=== PATIENT | female | born 1955 | race Caucasian/White ===

== ENCOUNTER → 2017-05-19 | Outpatient (CLI) | payer MEDICARE ==
--- NOTE | 2017-05-19 19:47 | MR ---
EXAMINATION TYPE: MR brain wo con DATE OF EXAM: 05/19/2017 COMPARISON: NONE HISTORY: Headaches, Dementia TECHNIQUE: Multiplanar, multisequence images of the brain and brainstem is performed without intravenous contras t. FINDINGS: Diffusion weighted images demonstrate no evidence of a recent infarct or other diffusion ab normality. There is no extra-axial fluid collection. Multiple scattered T2/IR hyperintense foci are seen throughout the periventricular and subcortical white matter. The largest on the right is within the parietal periventricular white matter on IR fat sat axial image 20 measuring 7 mm and the largest on the left is within the frontal lobe on image 21 measuring 4 mm. The ventricular system and cister nal spaces are symmetrically prominent, compatible with age-related volume loss. No transependymal ed kelly seen. Major intracranial flow voids are maintained. The brain volume is age appropriate. Midline structures demonstrate normal morphology. The craniocervical junction appears within normal limits. The globes are intact. Minimal mucosal thickening is seen of the ethmoid sinuses. Remaining p aranasal sinuses are well aerated. No cerebellar pontine angle mass IMPRESSION: 1. Moderate burden nonspecific T2/IR hyperintense white matter change. These are most commonly on the basis of chronic microangiopathy but also can be commonly seen in vasculitides or demyelinating dise ase. 2. Mild ethmoidal mucosal thickening/paranasal sinus disease. 3. No acute infarct, midline shift or mass effect.
== END | disposition home or self-care (01) ==
LOC: RADMRIMAIN 18:34
PROVIDERS: ATTEND Family Medicine
DX: I73.9 Peripheral vascular disease, unspecified (principal); R90.82 White matter disease, unspecified
CPT/HCPCS: 70551

== ENCOUNTER → 2018-04-15 | Outpatient (CLI) | payer MEDICARE ==
--- NOTE | 2018-04-15 23:26 | XR ---
EXAMINATION TYPE: XR knee complete LT DATE OF EXAM: 04/15/2018 COMPARISON: NONE HISTORY: 62 year-old female left knee pain TECHNIQUE: 3 views FINDINGS: Small to moderate knee joint effusion. Extensor mechanism is intact. No acute fracture, subluxation o r dislocation. Mild degenerative spurring in the patellofemoral and medial compartments. IMPRESSION: 1. Mild degenerative spurring medial and patellofemoral compartments. 2. Small to moderate knee joint effusion. No acute osseous abnormality seen. If concern for internal derangement, MRI can be performed.
== END | disposition home or self-care (01) ==
LOC: RADXRMAIN 15:37
PROVIDERS: ATTEND Family Medicine
DX: M17.12 Unilateral primary osteoarthritis, left knee (principal)

== ENCOUNTER → 2018-09-23 | Outpatient (CLI) | payer MEDICARE ==
--- NOTE | 2018-09-24 11:40 | MM ---
Reason for exam: screening (asymptomatic). Last mammogram was performed 9 months ago. History: Patient is postmenopausal. Physical Findings: A clinical breast exam by your physician is recommended on an annual basis and results should be correlated with mammographic findings. MG 3D Screening Mammo W/Cad Bilateral CC and MLO view(s) were taken. Prior study comparison: December 09, 2017, mammogram. July 06, 2013, mammogram. The breast tissue is heterogeneously dense. This may lower the sensitivity of mammography. Central left asymmetric density on CC appears to have been present previously but it appears more defined on 3D. Precautionary 6 month follow up recommended. Otherwise, no significant change. ASSESSMENT: Probably benign, BI-RAD 3 RECOMMENDATION: Follow-up diagnostic mammogram of the left breast in 6 months.
== END | disposition home or self-care (01) ==
LOC: RADMAMWWP 13:14
PROVIDERS: ATTEND Family Medicine
DX: Z12.31 Encounter for screening mammogram for malignant neoplasm of breast (principal)
CPT/HCPCS: 77063; 77067

== ENCOUNTER → 2018-10-14 | Outpatient (CLI) | payer MEDICARE ==
--- NOTE | 2018-10-14 15:52 | MR ---
EXAMINATION TYPE: MR knee LT wo con DATE OF EXAM: 10/14/2018 COMPARISON: Plain film 04/15/2018 HISTORY: Pain in left knee TECHNIQUE: Multiplanar, multisequence imaging of the left knee is performed without IV contrast. FINDINGS: MEDIAL MENISCUS: Linear increased signal within the medial meniscus does not extend to the articular surface. Peripherally the meniscus shows abnormal increased signal where there is pseudoextrusion, di fficult to exclude a degenerative tear peripherally at its medial extent. LATERAL MENISCUS: Linear increased signal present within the body does not extend with certainty to t he inferior surface CRUCIATE LIGAMENTS: The anterior and posterior cruciate ligaments are intact and unremarkable. COLLATERAL LIGAMENTS: The medial collateral ligament and lateral collateral ligament complex are inta ct and unremarkable. EXTENSOR MECHANISM: Visualized quadriceps and patellar tendons are intact. EFFUSION: There is a joint effusion in suprapatellar location POPLITEAL CYST: No popliteal/cain cyst. 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 IMPRESSION: Osteoarthritis. Joint effusion. Possible degenerative tear peripherally of the medial meniscus as karon cribed. Joint effusion. Additional findings above.
== END ==
LOC: RADMRIMAIN 15:01
PROVIDERS: ATTEND Family Medicine
DX: M17.12 Unilateral primary osteoarthritis, left knee (principal)

== ENCOUNTER → 2019-04-28 | Outpatient (CLI) | payer MEDICARE ==
--- NOTE | 2019-04-29 10:41 | MM ---
Reason for exam: follow-up at short interval from prior study. Last mammogram was performed 7 months ago. History: Patient is postmenopausal. Family history of breast cancer in maternal cousin. Physical Findings: Nurse Summary: 0.5cm nodule in the left breast at 7 o'clock (nurse katie). MG 3D Diag Mammo W/Cad LT CC and MLO view(s) were taken of the left breast. Prior study comparison: September 23, 2018, bilateral MG 3d screening mammo w/cad. December 09, 2017, mammogram. The breast tissue is heterogeneously dense. This may lower the sensitivity of mammography. There are benign appearing round calcifications in the left breast. There is no discrete abnormality. No new lesion seen. These results were verbally communicated with the patient and result sheet given to the patient on 04/28/19. ASSESSMENT: Incomplete: need additional imaging evaluation, BI-RAD 0 RECOMMENDATION: Ultrasound of the left breast. palpable by nurse
--- NOTE | 2019-04-29 10:41 | USB ---
Reason for exam: additional evaluation requested from abnormal screening. History: Patient is postmenopausal. Family history of breast cancer in maternal cousin. US Breast Limited LT Left limited breast ultrasound including focal area of concern, retroareolar and axilla demonstrates no cystic or solid lesion seen. These results were verbally communicated with the patient and result sheet given to the patient on 04/28/19. ASSESSMENT: Negative, BI-RAD 1 RECOMMENDATION: Return to routine screening mammogram schedule for both breasts.
== END | disposition home or self-care (01) ==
LOC: RADMAMWWP 14:32
PROVIDERS: ATTEND Family Medicine
DX: R92.8 Other abnormal and inconclusive findings on diagnostic imaging of breast (principal); R92.2 Inconclusive mammogram
CPT/HCPCS: 77065; 76642; G0279; 77061

== ENCOUNTER 2021-01-23 12:44 | Emergency (ER) | payer MEDICARE ==
--- NOTE | 2021-01-23 14:16 | ED ---
URI HPI - General Chief Complaint: Upper Respiratory Infection Stated Complaint: covid+ wants infusion Time Seen by Provider: 01/23/21 14:03 Source: patient, RN notes reviewed Mode of arrival: ambulatory Limitations: no limitations - History of Present Illness Initial Comments: This a 65 year old female presents emergency Department with chief complaint of COVID-19. Patient states that she tested positive one week ago. Patient is here for monoclonal antibodies. Patient states that her is admitted upstairs in which he was intubated today and she was concerned. Patient states that she's had some mild shortness breath, cough congestion bodyaches no recent fevers. - Related Data Allergies Allergy/AdvReac Type Severity Reaction Status Date / Time codeine Allergy Nausea & Verified 01/23/21 13:49 Vomiting Review of Systems ROS Statement: Those systems with pertinent positive or pertinent negative responses have been documented in the HPI. ROS Other: All systems not noted in ROS Statement are negative. Past Medical History Additional Past Medical History / Comment(s): Coivd 01/30 History of Any Multi-Drug Resistant Organisms: None Reported Past Surgical History: Section, Hysterectomy Additional Past Surgical History / Comment(s): carpal suregery,amalia cataracts, kidney stents Past Psychological History: Depression Smoking Status: Never smoker Past Alcohol Use History: None Reported Past Drug Use History: None Reported General Exam Limitations: no limitations General appearance: alert, in no apparent distress Head exam: Present: atraumatic, normocephalic, normal inspection Respiratory exam: Present: normal lung sounds bilaterally. Absent: respiratory distress, wheezes, rales, rhonchi, stridor Cardiovascular Exam: Present: regular rate, normal rhythm, normal heart sounds. Absent: systolic murmur, diastolic murmur, rubs, gallop, clicks Course Vital Signs 01/23/21 01/23/21 13:43 13:54 Temperature 98.3 F Pulse Rate 82 Respiratory 20 20 Rate Blood Pressure 132/83 O2 Sat by Pulse 96 Oximetry Medical Decision Making - Medical Decision Making Patient's vitals were reviewed and are within normal limits patient is no sinus distress. Patient received monoclonal antibodies will be discharged in stable condition. Disposition Clinical Impression: COVID-19 Disposition: HOME SELF-CARE Condition: Stable Instructions (If sedation given, give patient instructions): Coronavirus Disease 2019 (COVID-19) Additional Instructions: Please return to the Emergency Department if symptoms worsen or any other concerns. Is patient prescribed a controlled substance at d/c from ED?: No Referrals: Hina Castellon MD [Primary Care Provider] - 1-2 days Time of Disposition: 14:16
[2021-01-23] MEDS ORDERED: SODIUM CHLORIDE 0.9% 50 ML IVPB ONE (15:30)
[2021-01-23] MEDS ORDERED: CASIRIVIMAB/IMDEVIMAB (EUA) 1,200 MG in SODIUM CHLORIDE 0.9% 100 ML IVPB ONE (15:30)
[2021-01-23 16:47] VITALS: BP 143/83; PULSE 63; RESP 18; TEMP 99.2
== END 2021-01-23 16:47 | disposition home or self-care (01) ==
LOC: EC 12:44
DX: U07.1 COVID-19 (principal); F32.9 Major depressive disorder, single episode, unspecified; Z88.5 Allergy status to narcotic agent; Z90.710 Acquired absence of both cervix and uterus
CPT/HCPCS: 99284; 96365; Q0243

== ENCOUNTER → 2023-07-30 | Outpatient (CLI) | payer MEDICARE ==
--- NOTE | 2023-07-30 12:49 | CT ---
EXAMINATION TYPE: CT chest wo con CT DLP: 1161 mGycm, Automated exposure control for dose reduction was used. DATE OF EXAM: 07/30/2023 12:38 PM COMPARISON: Chest radiograph 04/30/2023 CLINICAL INDICATION:Female, 67 years old with history of [id number] OTHER FORMS OF DYSPNEA; PHH, SOB TECHNIQUE: Multiple axial images were obtained through the chest, prone imaging was also obtained. Sa gittal and coronal reformats were created for review. Contrast used: (None if empty) Oral contrast used: (None if empty) FINDINGS: LUNGS/ PLEURA: 2 mm left apex pulmonary micronodule. No evidence of pleural effusion or pneumothorax. Prone imaging is unremarkable. No evidence of chronic fibrosis. AIRWAY: Patent and unremarkable. HEART: Size within normal limits. MEDIASTINUM: No gross evidence of adenopathy. VASCULATURE: No aortic aneurysm. MUSCULOSKELETAL: No acute osseous abnormalities SOFT TISSUES/LYMPH NODES: Unremarkable. LOWER NECK: No significant findings. UPPER ABDOMEN: No significant findings. IMPRESSION: No evidence of acute process or pulmonary fibrosis/interstitial disease.
== END | disposition home or self-care (01) ==
LOC: RADCTMAIN 12:00
PROVIDERS: ATTEND Internal Medicine Critical Care Medicine
DX: R06.09 Other forms of dyspnea (principal); R06.02 Shortness of breath
CPT/HCPCS: 71250

== ENCOUNTER → 2023-08-21 | Outpatient (CLI) | payer MEDICARE, OTHER ==
--- NOTE | 2023-08-26 16:43 | P.PCN ---
Date of Procedure: 08/21/23 Operative Findings: Home sleep study testing Date of service is 08/21/2023 Pertinent history This is a 58-year-old female patient who was established to have obstructive sleep apnea many years back. The patient has been on tolerant to CPAP therapy in the past. She requested reevaluation. Based on that, a home sleep study was ordered. Note that the patient has history of hypertension and depression. She has history of nephrolithiasis. She also has a positive ARCHANA. Pertinent physical findings Patient has a height of 5 feet and 4 inches, weight is 168 pounds with a BMI of 28.8 Technical description The [employer] ApneaLink system was used to complete this home sleep study. This is a type III home sleep study. The total recording duration was 12 hours. The study started at 9:07 PM and ended at 9:07 AM. There was more than 7 hours of flow and oxygen saturation monitoring throughout the sleep study Results The respiratory evaluation showed a total of 59 obstructive apneas and a total of 176 obstructive hypopneas. The overall apnea-hypopnea index was 30.5 it was worse during supine body position with an AHI of 44.5 while supine. The central apnea index was 1.3. Oxygenation analysis The baseline pulse ox while awake was 98%, average pulse ox during sleep was 91% and the lowest pulse ox was 80%. This patient spent approximately 39 minutes of sleep time below pulse ox of 89% Cardiac summary Average heart rate was 60 with a mean heart rate of 49 and maximum heart rate of 148 Assessment Severe symptomatic obstructive sleep apnea with an AHI of 30.5 worsening supine body position with an AHI of 44.5 in the supine body position. Mild nocturnal oxygen desaturation with a minimum pulse ox of 80% and the patient spent approximately 39 minutes of sleep time below pulse ox of 89% Hypertension [place] score of 6 Plan I am going to discuss those findings with the patient. I am going to assess her readiness and commitment to CPAP therapy. Obviously, there is role for CPAP therapy especially with her significant degree of obstructive sleep apnea. If willing to undertake the treatment, the patient will be set up for a in lab CPAP titration. Encouraged losing weight. Maintain good sleep hygiene measures. Will continue to follow make further recommendations after having those results discussed with the patient.
== END ==
LOC: 3 N SLEEP 16:50
PROVIDERS: ATTEND Internal Medicine Critical Care Medicine
DX: G47.33 Obstructive sleep apnea (adult) (pediatric) (principal); I10 Essential (primary) hypertension; Z88.5 Allergy status to narcotic agent